=== PATIENT | female | born 1970 | race Caucasian/White ===

== ENCOUNTER → 2017-11-30 08:19 | Outpatient (CLI) | payer BC, SELFPAY ==
--- NOTE | 2017-11-30 08:24 | US_ITS ---
US abdomen limited History:Right upper quadrant pain Ordering Physician:Pavan Flores MD Patient Age: 47 years Comparison:None Findings: Pancreas:Unremarkable. No obvious mass or abnormal fluid collection. No ductal dilatation Liver:No focal liver lesions demonstrated. Homogeneous echogenicity. No intrahepatic biliary ductal dilatation evident Right Kidney:Unremarkable. Normal size and echogenicity. No hydronephrosis Gallbladder:No gallstones, gallbladder wall thickening, pericholecystic fluid, or biliary dilatation. There is a small amount of layering sludge versus concentrated bile questionable clinical significance. Impression: 1. No gallstones, gallbladder wall thickening, pericholecystic fluid, or biliary dilatation 2. Small amount of layering sludge within the gallbladder
== END ==
PROVIDERS: Family Provider Family Medicine; PCP Family Medicine; Visit Provider Family Medicine
DX: R10.11 Right upper quadrant pain (principal)
CPT/HCPCS: 76705

== ENCOUNTER → 2017-12-17 10:09 | Outpatient (CLI) | payer BC, SELFPAY ==
--- NOTE | 2017-12-17 10:15 | NM_ITS ---
NM hepatobiliary wo pharm HISTORY: ITS.REASON: RUQ PAIN , GB SLUDGE ORDERING PHYSICIAN: Pavan Flores MD PATIENT AGE: 47 years COMPARISON: None DOSE: 8.20 [facility] choletec Fatty Meal: Ensure FINDINGS: Homogeneous activity is present within the hepatic parenchyma. Activity is present in the gallbladder by 15 minutes. Activity is present in the small bowel by fatty meal images. The gallbladder ejection fraction is calculated to be 55% The patient did not report pain or other symptoms following the fatty meal. IMPRESSION: Unremarkable hepatobiliary scan and gallbladder ejection fraction. No evidence of common or cystic duct obstruction with normal gallbladder ejection fraction
== END ==
PROVIDERS: Family Provider Family Medicine; PCP Family Medicine; Visit Provider Family Medicine
DX: R10.11 Right upper quadrant pain (principal); K82.8 Other specified diseases of gallbladder
CPT/HCPCS: 78226; A9537

== ENCOUNTER → 2018-04-04 16:20 | Outpatient (CLI) | payer BC, SELFPAY ==
--- NOTE | 2018-04-04 16:25 | MM_ITS ---
MM Dig screening mamm BI w/CAD ORDERING PHYSICIAN : Pavan Flores MD PATIENT AGE: 48 years GENDER: Female COMPARISON: November 2016, 2015, August 2014], July [id number] INDICATION: ITS.REASON: SCREENING patient taking female hormones as per history sheet.No new complaints. Family history. Maternal grandmother with breast cancer TECHNIQUE: Standard CC and MLO images were obtained. R2 CAD reviewed. The study was previously reviewed by Dr. Hdz & locked and unavailable for dictation .. Now presented to Dr. Menard for completion. FINDINGS: Moderately dense heterogeneous breast RIGHT BREAST: . small small focal area of density at the upper outer quadrant of central breast. It measures up to 5.5 mm size. It is labeled a. Warrants additional CC and 90 degree and MLO spot views to further evaluate. Ultrasound suggested as well. May merely reflect summation shadows is a similar area seen back on 2015 MLO view area but does warrant further evaluation. This density Noted on visual inspection but then also was noted to be highlighted by CAD computer review. LEFT BREAST: Stable no new areas of concern IMPRESSION: ...... 1. Right breast. Warrants additional spot views and ultrasound Small focal area of density at the upper-outer quadrant central right breast . May merely be summation shadow but warrants additional spot views and ultrasound BI-RADS Category: 0 Need Additional Imaging Evaluation RECOMMENDED FOLLOW-UP: IMM - IMMEDIATE FOLLOW-UP RECOMMENDED Spot views and ultrasound right breast (A letter has been sent to the patient regarding results of the study.)
== END ==
PROVIDERS: Family Provider Family Medicine; PCP Family Medicine; Visit Provider Family Medicine
DX: Z12.31 Encounter for screening mammogram for malignant neoplasm of breast (principal)
CPT/HCPCS: 77067

== ENCOUNTER → 2018-04-26 13:38 | Outpatient (CLI) | payer BC, SELFPAY ==
--- NOTE | 2018-04-26 13:49 | MM_ITS ---
MM Dig mamm DX unilat RT CAD, US breast RT complete INDICATION: Follow-up abnormal mammogram ORDERING PHYSICIAN: Pavan Flores MD PATIENT AGE: 48 years COMPARISON: 04/04/2018, 12/09/2016 TECHNIQUE: Problem-solving views of the right breast along with right breast ultrasound FINDINGS: Average to dense fibroglandular tissue which decreases sensitivity of mammography. The asymmetric density in the superior right breast in the periareolar region was once again noted on the regular spot compression view but not duplicated on the cc view or the ML view and is less apparent on the focal spot compression views probably related to an area of asymmetric fibroglandular tissue. There is some residual asymmetric density in this area however, no sonographic abnormality is evident to correspond to this region. Left breast ultrasound: No cystic or solid mass is apparent. Specifically, no sonographic abnormality to correspond to the area of asymmetry IMPRESSION: Area of asymmetric density in the superior right breast to asymmetric fibroglandular tissue. No convincing evidence of malignancy BI-RADS Category: 3 Probably Benign Finding Short Term Follow-up RECOMMENDED FOLLOW-UP: 6M - 6 MONTH FOLLOW-UP (A letter has been sent to the patient regarding results of the study.)
== END ==
PROVIDERS: PCP Family Medicine; Visit Provider Family Medicine
DX: R92.8 Other abnormal and inconclusive findings on diagnostic imaging of breast (principal)
CPT/HCPCS: 76641; 77065

== ENCOUNTER → 2018-10-28 12:37 | Outpatient (CLI) | payer BC, SELFPAY ==
--- NOTE | 2018-10-28 12:53 | US_ITS ---
MM Dig mamm DX unilat RT CAD, US breast RT complete INDICATION: Follow-up abnormal mammogram, 6 month follow-up ORDERING PHYSICIAN: Pavan Flores MD PATIENT AGE: 48 years COMPARISON: 04/26/2018, 04/04/2018, 12/09/2016 TECHNIQUE: Standard images performed along with spot compression and rolled views FINDINGS: There is dense fibroglandular tissue. Previously noted asymmetric density in the lateral aspect of the right breast is unchanged. This density is less apparent on the MLO view on today's exam. The asymmetric density superior to the nipple on the MLO view is not significantly changed. Right breast ultrasound: No cystic or solid lesions evident. There is a small area of increased echogenicity consistent with calcification at 10:00 IMPRESSION: No change. No evidence of malignancy. Asymmetric density is once again noted which appear stable BI-RADS Category: 2 Benign Finding(s) RECOMMENDED FOLLOW-UP: 6M - 6 MONTH FOLLOW-UP (A letter has been sent to the patient regarding results of the study.)
== END ==
PROVIDERS: PCP Family Medicine; Visit Provider Family Medicine
DX: R92.8 Other abnormal and inconclusive findings on diagnostic imaging of breast (principal)
CPT/HCPCS: 76641; 77065

== ENCOUNTER → 2019-04-21 13:46 | Outpatient (CLI) | payer BC, SELFPAY ==
--- NOTE | 2019-04-21 13:53 | MM_ITS ---
PROCEDURE: MM DIG MAMM BI DX W/CAD CLINICAL INDICATION: 6 MONTH F/U COMPARISON: [facility] DIG MAMM-SCREEN KISHOR from 12/03/2015 [facility] DIG MAMM-SCREEN K[facility]OR W/CAD from 12/09/2016 [facility] MM Dig screening mamm BI w/CAD from 04/04/2018 DXRT MM Dig mamm DX unilat RT CAD from 04/26/2018 DIG MAMM-DX UNI-RT from 10/28/2018 TECHNIQUE: Standard CC and MLO images were obtained. R2 CAD reviewed. FINDINGS: The scattered areas of asymmetry once again noted in the right breast not significantly changed. No discrete mass or malignant-appearing microcalcification. There is average fibroglandular tissue. Benign appearing calcification noted on the right IMPRESSION: No evidence of malignancy with no significant change BI-RAD Category: 2 Benign Finding(s) FOLLOW-UP: 1YR 1 Year Follow-up (A letter has been sent to the patient regarding results of the study.) Dictated by: Darrell Choudhary MD 04/21/2019 14:44 Electronically signed by Darrell Choudhary MD in [place] 04/21/2019 14:44
== END ==
PROVIDERS: PCP Family Medicine; Visit Provider Family Medicine
DX: R92.8 Other abnormal and inconclusive findings on diagnostic imaging of breast (principal)
CPT/HCPCS: 77066

== ENCOUNTER 2020-01-21 20:51 | Emergency (ER) | payer BC, SELFPAY ==
[2020-01-21 21:11] VITALS: BP 148/88; PULSE 75; RESP 19; TEMP 37.1; O2SAT 97; BMI 25.6
--- NOTE | 2020-01-21 21:17 | HMH.EDUTC ---
[facility] [place] Clinical Impression: COVID-19 virus test result unknown Disposition: Home, Self-Care Condition on Discharge: Good Instructions: Preventing the Spread of Coronavirus Discharge Instructions Referrals: Pavan Flores MD [Primary Care Provider] - Time of Disposition: 21:22 Medical Decision Making - Son Inquiry Pt receiving controlled substance: No Vital Signs: 01/21/20 21:11 Temperature 98.7 F Temperature Source Oral Pulse Rate [Right Brachial] 75 Respiratory Rate 19 Blood Pressure [Right Arm] 148/88 H Blood Pressure Mean [Right Arm] 108 Blood Pressure Source [Right Arm] Automatic Cuff Blood Pressure Position [Right Arm] Sitting 02 Sat by Pulse Oximetry 97 Oxygen Delivery Method Room Air Orders (Tests/Meds): ORDERS Category Date Time Status SARS-CoV-2, [facility] Stat Lab 01/21/20 20:53 Ordered [facility] [place] HPI - General Chief complaint: [facility] Stated complaint: covid test Time Seen by Provider: 01/21/20 21:20 Mode of Arrival: Ambulatory Source of Information: Patient Limitations: No Limitations Description of Symptoms (Recalled from Triage Doc. by RN): PATIENT IS REQUESTING COVID TEST D/T BEING TESTED AND HAVING SYMPTOMS, DENIES ANY SYMPTOMS HEENT Symptoms (Recalled from RN notes): No Resp Symptoms (Recalled from RN notes): No Skin Symptoms (Recalled from RN notes): No MS Symptoms (Recalled from RN notes): No Functional Status (Recalled from RN notes): WNL - History of Present Illness Provider Complaint: 49 yr old female presents for coived testing. pt states no symptoms but her has a fever. - Related Data Allergies Allergy/AdvReac Type Severity Reaction Status Date / Time No Known Allergies Allergy Verified 01/21/20 21:14 - Worker's Comp Is this a Worker's Comp case?: No [facility] History - Hepatitis A Screen Drug use history?: No High risk sexual behaviors?: No History of sexually transmitted infection?: No Currently employed?: No Childcare worker?: No Do you have indoor plumbing?: Yes Do you have electricity?: Yes Attestation statement:: This patient has been screened for Hepatitis A risk factors. I have reviewed the patient's past medical history: Yes Laterality Cases: Bilateral: Tonsillectomy - Social History Alcohol Intake: never Occupational Status: other ROS Obtained: Yes Systems reviewed as appropriate & no additional complaints - Constitutional Constitutional: Reports system reviewed and no additional complaints, except as docu, Denies body ache, Denies fatigue, Denies fever(s) - Eyes Eyes: Reports system reviewed and no additional complaints, except as docu, Denies change in vision - ENT Ears, Nose, Mouth, and Throat: Reports system reviewed and no additional complaints, except as docu, Denies sinus pressure, Denies sore throat - Cardiovascular Cardiovascular: Reports system reviewed and no additional complaints, except as docu, Denies chest pain - Respiratory Respiratory: Yes system reviewed and no additional complaints, except as docu, No chest congestion - Gastrointestinal Gastrointestingal: Reports: system reviewed and no additional complaints, except as docu. Denies: nausea, vomiting - Genitourinary Female Genitourinary: Reports system reviewed and no additional complaints, except as docu, Denies urinary incontinence - Musculoskeletal Musculoskeletal: Reports system reviewed and no additional complaints, except as docu, Denies joint pain - Integumentary/Breasts Skin/Breast: Reports system reviewed and no additional complaints, except as docu, Denies rash - Neurologic Neurologic: Reports system reviewed and no additional complaints, except as docu, Denies tingling/numbness/burning sensations - Endocrine Endocrine: Reports system reviewed and no additional complaints, except as docu, Denies fatigue - Hematologic/Lymphatic Henatologic/Lymphatic: Reports system reviewed and no additional complaints, exc
[2020-01-21 21:42] VITALS: BP 148/88; PULSE 75; RESP 19; TEMP 37.1; O2SAT 97
[2020-01-23 14:19] LABS: Covid-19 Nasal PCR Sendout Lex Not Detected
== END 2020-01-21 21:43 | disposition home or self-care (01) ==
PROVIDERS: Emergency Provider Nurse Practitioner Family; PCP Family Medicine
DX: Z20.828 Contact with and (suspected) exposure to other viral communicable diseases (principal)
CPT/HCPCS: 99201; U0004

== ENCOUNTER → 2020-04-17 16:48 | Outpatient (CLI) | payer BC, SELFPAY ==
--- NOTE | 2020-04-17 16:50 | MM_ITS ---
PROCEDURE: MM DIG SCREENING MAMM BI W/CAD Digital Breast Tomosynthesis Included CLINICAL INDICATION: SCREENING There is a history of breast cancer in the patient's maternal grandmother. COMPARISON: MG [facility] MM Dig screening mamm BI w/CAD from 04/04/2018 MG DXRT MM Dig mamm DX unilat RT CAD from 04/26/2018 MG DIG MAMM-DX UNI-RT from 10/28/2018 MG MM DIG MAMM BI DX W/CAD from 04/21/2019 TECHNIQUE: Standard CC and MLO images and 3D Tomosynthesis was obtained. R2 CAD reviewed. FINDINGS: Scattered fibroglandular densities are seen throughout both breasts. Again noted are asymmetric glandular elements right breast unchanged from previous exams. There is a benign-appearing calcification right breast and new benign-appearing calcifications just deep to the nipple left breast. There is no suspicious lesion and no suspicious microcalcifications. IMPRESSION: Moderate breast density with no suspicious lesions seen BI-RAD Category: 2 Benign Finding(s) FOLLOW-UP: 1YR 1 Year Follow-up (A letter has been sent to the patient regarding results of the study.) Dictated by: Dr. Germán Hdz MD 04/19/2020 08:47 Dr. Germán Hdz MD in [place] 04/19/2020 08:47
== END ==
PROVIDERS: PCP Family Medicine; Visit Provider Family Medicine
DX: Z12.31 Encounter for screening mammogram for malignant neoplasm of breast (principal)
CPT/HCPCS: 77063; 77067

== ENCOUNTER → 2020-11-27 10:13 | Outpatient (CLI) | payer BC, SELFPAY | PROVIDERS: Visit Provider Internal Medicine Gastroenterology | DX: Z01.812 Encounter for preprocedural laboratory examination (principal); Z11.52 Encounter for screening for COVID-19; Z12.11 Encounter for screening for malignant neoplasm of colon | CPT/HCPCS: U0003 ==

== ENCOUNTER 2020-11-29 07:01 | Day surgery (SDC) | payer BC, SELFPAY ==
[2020-11-21 08:19] VITALS: BMI 25.4
[2020-11-29 07:16] VITALS: BP 133/72; PULSE 55; RESP 18; TEMP 36.6; O2SAT 99
--- NOTE | 2020-11-29 07:41 | P.PN_ITS ---
[facility] Anesthesia Checklist - Structural Data Admitted From: Home Planned Operative Procedure/s: colonoscopy Consent for Planned Operative Procedure(s) Verified: Yes - Airway Assessment C-Spine Mobility Assessed: Yes TMJ Mobility Assessed: Yes Dentition: Good Dentition - Neurological Assessment Level of Consciousness: Awake, Alert, Appropriate - Anesthesia Plan Anesthesia Risk discussed: Yes Anesthesia Plan: Verified ASA Class: II Anesthesia Type: MAC [facility] History I have reviewed the patient's past medical history: Yes Medical History: Denies:: Cancer, Diabetes Mellitus Type 1, Diabetes Mellitus Type 2, Internal Pacemaker, MRSA, Seizures *Have you ever received a pneumonia vaccine?: No *Have you received a flu vaccine this season?: Yes Anesthesia experience/problems:: none Laterality Cases: Bilateral: Tonsillectomy Other Surgeries: No: Pacemaker Amputation: No Fractures: No - *Social History Last grade of school completed: Advanced degree Smoking Status: Never smoker Alcohol Intake: current Alcohol Intake Frequency:: a few times a month Substance Use Type: denies use *Occupational Status:: retired Housing: house Household Members: spouse *Travel in the last 8 weeks: None Family Hx:: No significant family history, Asthma
[2020-11-29 08:04] VITALS: O2SAT 97
--- NOTE | 2020-11-29 08:08 | HMH.PROC ---
[facility] Procedure Note Procedure Note:: Colonoscopy Procedure Report: Colonoscopy Endoscopist: You Chu II, MD Referring physician: Pavan Flores MD Date of Procedure: November 29, 2020 Equipment: Olympus 190 variable stiffness pediatric colonoscope Sedation: MAC sedation Indication: Mrs. Chan is a 50-year-old female who is here for initial screening colonoscopy. She reports no abdominal pain, weight loss, change in her bowel habits or rectal bleeding. She reports no family history of colon cancer. She does have some chronic constipation. She did have a hysterectomy at age 32. Procedure: Prior to the procedure, a history and physical exam was performed, and patient's medications and allergies were reviewed. The risks, benefits and alternatives of the sedation and procedure were discussed with the patient. All questions were answered and informed consent was obtained. The patient was brought to the procedure room. Patient identification and proposed procedure were verified by the physician and the nurse. The patient was placed in a left lateral decubitus position and the scope was passed under direct vision. Throughout the procedure, the patient's blood pressure, pulse, and oxygen saturations were monitored continuously. The colonoscopy was accomplished without difficulty. The patient tolerated the procedure well. Findings: On digital rectal examination there was normal rectal tone. There were no external hemorrhoids. The colonoscope was introduced through the anal canal to the rectum and advanced to the cecum. The ileocecal valve and appendiceal orifice were identified. The scope was advanced a short distance into the ileum which appeared grossly normal. The scope was then withdrawn into the colon. The cecum, ascending, transverse, descending, sigmoid and rectum were grossly normal. There was some very mild melanosis coli. There were no other mucosal abnormalities identified. Upon retroflexion within the rectum there were grade 1 internal hemorrhoids.The preparation was excellent throughout with [place] Preparation Score of 9. The cecal time was 11 minutes. Impression: 1. Normal colonoscopy with intubation of the terminal ileum Plan: The patient will not require screening/surveillance colonoscopy again for 10 years by ACS guidelines. I would encourage using a fiber bowel regimen on a long-term daily maintenance basis.
[2020-11-29 08:25] VITALS: BP 127/70; PULSE 64; RESP 16; TEMP 36.6; O2SAT 100
[2020-11-29 08:35] VITALS: BP 120/80; PULSE 61; RESP 18; O2SAT 100
[2020-11-29 08:45] VITALS: BP 142/64; PULSE 68; RESP 18; O2SAT 100
[2020-11-29 08:55] VITALS: BP 133/62; PULSE 59; RESP 18; O2SAT 100
== END 2020-11-29 08:55 | disposition home or self-care (01) ==
PROVIDERS: PCP Family Medicine; Visit Provider Internal Medicine Gastroenterology
PROC: 0DJD8ZZ Inspection of Lower Intestinal Tract, Via Natural or Artificial Opening Endoscopic (ICD-10-PCS; CPT 45378; principal; 2020-11-29 08:00)
DX: Z12.11 Encounter for screening for malignant neoplasm of colon (principal); K64.0 First degree hemorrhoids; K63.89 Other specified diseases of intestine; Z82.5 Family history of asthma and other chronic lower respiratory diseases; Z79.899 Other long term (current) drug therapy
CPT/HCPCS: 45378

== ENCOUNTER → 2020-12-10 07:57 | Outpatient (POV) | payer BC, SELFPAY | PROVIDERS: Visit Provider Dermatology | DX: Z00.00 Encounter for general adult medical examination without abnormal findings (principal) ==

== ENCOUNTER → 2021-04-28 07:48 | Outpatient (CLI) | payer BC, SELFPAY ==
--- NOTE | 2021-04-28 07:59 | MM_ITS ---
PROCEDURE INFORMATION: Exam: MG Bilateral Screening 3D Mammography Exam date and time: 04/28/2021 7:59 AM Age: 51 years old Clinical indication: Encounter for screening mammogram for malignant neoplasm of breast TECHNIQUE: Imaging protocol: Bilateral screening tomosynthesis and 2D mammography including computer-aided detection (CAD) when performed. COMPARISON: 1. MG MM DIG SCREENING MAMM BI W/CAD 04/17/2020 4:52 PM 2. MG MM DIG MAMM BI DX W/CAD 04/21/2019 2:07 PM FINDINGS: MAMMOGRAPHY: Breast composition: The breast tissue is heterogeneously dense, which may obscure small masses. Mass: None. Architectural distortion: None. Calcifications: No suspicious calcifications. Asymmetric density: None. Skin thickening: None. Axillary adenopathy: None. IMPRESSION: No mammographic evidence of malignancy. Annual screening is recommended unless otherwise clinically indicated. ASSESSMENT: BI-RADS Category 1: Negative
== END ==
PROVIDERS: PCP Family Medicine; Visit Provider Family Medicine
DX: Z12.31 Encounter for screening mammogram for malignant neoplasm of breast (principal)
CPT/HCPCS: 77063; 77067

== ENCOUNTER → 2022-02-03 15:51 | Outpatient (POV) | payer BC, SELFPAY | PROVIDERS: Visit Provider Dermatology | DX: Z00.00 Encounter for general adult medical examination without abnormal findings (principal) ==

== ENCOUNTER 2022-04-26 08:06 | Emergency (ER) | payer BC, SELFPAY ==
[2022-04-26 08:28] VITALS: BP 147/72; PULSE 80; RESP 16; TEMP 37; O2SAT 100; BMI 24.7
--- NOTE | 2022-04-26 08:37 | EXP.UTC ---
Discharge Plan Disposition Patient Disposition: Home, Self-Care Condition: Good Prescriptions Prescriptions: New amoxicillin [amoxicillin] 500 mg tablet 500 mg PO TID 10 Days Qty: 30 0RF benzonatate [benzonatate] 100 mg capsule 100 mg PO TIDP PRN (Reason: Cough) Qty: 30 0RF oseltamivir [Tamiflu] 75 mg capsule 75 mg PO BID Qty: 10 0RF methylprednisolone 4 mg Tablets,Dose Pack 4 mg PO DIRECTED Qty: 21 0RF No Action estradiol [Estrace] 0.01 % (0.1 mg/gram) cream 0.5 g VAGINAL .three times weekly 30 Days Qty: 42.5 2RF fluticasone propionate 120 SPR/BOT bottle 2 spr NS DAILY loratadine 10 MG tablet 10 mg PO DAILY Referrals Follow up/Referrals: Pavan Flores MD [Primary Care Provider] - See instructions Activity Restrictions/Add. Instructions Additional Instructions/Restrictions: Drink plenty of fluids. Take tylenol or ibuprofen for pain or fever. Take the medications as directed. Follow up with your regular doctor. GO TO THE ER FOR ANY WORSENING SYMPTOMS Clinical Impressions Clinical Impression: Influenza A, Strep throat Stand Alone Forms Stand Alone Forms: Work/School Release Instructions Patient Instructions: Strep Throat, DI for Strep Throat, DI for Influenza -- Adult, Oseltamivir Discharge ED Provider: David Gracia [facility] General Stated complaint: sore throat,congestion Mode of Arrival: Ambulatory Source of Information: Patient Limitations: No Limitations Time Seen by Provider: 04/26/22 08:36 Description of Symptoms (Recalled from Triage Doc. by RN): pt comes in with c/o sore throat, fatigue, body aches. symptoms began last night. HEENT Symptoms (Recalled from RN notes): Yes Resp Symptoms (Recalled from RN notes): No Skin Symptoms (Recalled from RN notes): No MS Symptoms (Recalled from RN notes): No Functional Status (Recalled from RN notes): n/a History of Present Illness Provider Complaint: She states that for the past 1 day she has had body ache, chills, low grade fever, and chest congestion. Related Data Home Medications Medication Instructions Recorded Confirmed fluticasone propionate 50 2 spr intranasal DAILY Allergy 11/21/20 10/31/21 mcg/actuation nasal symptoms spray,suspension loratadine 10 mg tablet 10 mg PO DAILY Allergy symptoms 11/21/20 10/31/21 Previous Rx's Medication Instructions Recorded estradiol 0.01% (0.1 mg/gram) 0.5 g vaginal .three times weekly 02/25/21 vaginal cream (Estrace) 30 days #42.5 grams amoxicillin 500 mg tablet 500 mg PO TID 10 days #30 tabs 04/26/22 benzonatate 100 mg capsule 100 mg PO TIDP PRN Cough #30 caps 04/26/22 methylprednisolone 4 mg tablets in 4 mg PO DIRECTED #21 tabs 04/26/22 a dose pack oseltamivir 75 mg capsule (Tamiflu) 75 mg PO BID #10 caps 04/26/22 Allergies Allergy/AdvReac Type Severity Reaction Status Date / Time No Known Allergies Allergy Verified 04/26/22 08:30 Worker's Comp Is this a Worker's Comp case?: No PFSH PFSH Social History Smoking Status: Former smoker alcohol intake: current substance use type: denies use current occupational status: retired Travel in the last 8 weeks: None household members: spouse housing: house current occupational exposures/hazards: No caffeine: Yes ROS Obtained: Yes All systems reviewed & no additional complaints except as documented Constitutional Constitutional: Reports chills and Reports fever(s) Eyes Eyes: Denies eye discharge ENT Ears, Nose, Mouth, and Throat: Reports as per HPI Cardiovascular Cardiovascular: Denies chest pain Respiratory Respiratory: Denies chest congestion and Reports cough Gastrointestinal Gastrointestingal: Reports nausea; Denies abdominal pain, constipation, cramping, diarrhea or vomiting Musculoskeletal Musculoskeletal: Denies arthralgias Integumentary/Breasts Skin/Breast: Denies rash Neurologic Neurologic:
[2022-04-26 08:41] LABS: UTC Strep Screen (Rapid) Negative (Negative)
[2022-04-26 08:42] LABS: UTC Influenza A Antigen Negative (Negative); UTC Influenza B Antigen Negative (Negative)
[2022-04-26 09:04] VITALS: BP 147/72; PULSE 80; RESP 16; TEMP 37
== END 2022-04-26 09:12 | disposition home or self-care (01) ==
PROVIDERS: Emergency Provider Nurse Practitioner Family; PCP Family Medicine
DX: J02.9 Acute pharyngitis, unspecified (principal); R53.82 Chronic fatigue, unspecified; R50.9 Fever, unspecified; R05.9 Cough, unspecified; M79.10 Myalgia, unspecified site; Z79.51 Long term (current) use of inhaled steroids; Z79.52 Long term (current) use of systemic steroids; Z79.899 Other long term (current) drug therapy; Z79.890 Hormone replacement therapy; Z87.891 Personal history of nicotine dependence
CPT/HCPCS: 87804; 87880; 99213; G0463

== ENCOUNTER → 2022-06-22 08:16 | Outpatient (CLI) | payer BC, SELFPAY ==
--- NOTE | 2022-06-22 08:20 | MM_ITS ---
PROCEDURE INFORMATION: Exam: MG Bilateral Screening 3D Mammography Exam date and time: 06/22/2022 8:11 AM Age: 52 years old Clinical indication: Screening examination. Her maternal grandmother had breast cancer. TECHNIQUE: Imaging protocol: Bilateral Screening tomosynthesis and 2D mammography including computer-aided detection (CAD) when performed. COMPARISON: 1. MG MM DIG SCREENING MAMM BI W/CAD 04/28/2021 7:55 AM 2. MG MM DIG SCREENING MAMM BI W/CAD 04/17/2020 4:52 PM 3. MG MM DIG MAMM BI DX W/CAD 04/21/2019 2:07 PM 4. MG DIG MAMM-DX UNI-RT 10/28/2018 1:15 PM FINDINGS: MAMMOGRAPHY: Breast composition: The breasts are heterogeneously dense, which may obscure small masses. Mass: No suspicious mass. Architectural distortion: None. Calcifications: No suspicious calcifications. Asymmetric density: None. Skin thickening: None. Axillary adenopathy: None. IMPRESSION: No mammographic evidence of malignancy. Annual screening is recommended unless otherwise clinically indicated. ASSESSMENT: BI-RADS Category 1: Negative
== END ==
PROVIDERS: PCP Family Medicine; Visit Provider Family Medicine
DX: Z12.31 Encounter for screening mammogram for malignant neoplasm of breast (principal)
CPT/HCPCS: 77063; 77067

== ENCOUNTER → 2023-02-23 14:22 | Outpatient (POV) | payer BC, SELFPAY | PROVIDERS: Visit Provider Dermatology | DX: Z00.00 Encounter for general adult medical examination without abnormal findings (principal) ==

== ENCOUNTER 2024-10-03 13:16 | Outpatient (CLI) | payer BC, SELFPAY ==
--- NOTE | 2024-10-03 13:23 | XR_ITS ---
FINAL REPORT CLINICAL HISTORY: Right knee pain..no trauma FINDINGS: AP, lateral and oblique views of the right knee were obtained. There is no prior exam for comparison. There is no acute osseous abnormality of the right knee. The joint space is preserved. The soft tissues are normal. There is no joint effusion. IMPRESSION: No acute osseous abnormality of the right knee. Reviewed, Interpreted and Dictated by Debby Bullock MD Transcribed by Irina Buenrostro Authenticated and [facility]
== END 2024-10-03 23:59 | disposition home or self-care (01) ==
LOC: RAD 13:16
PROVIDERS: PCP Family Medicine; Visit Provider Physician Assistant
DX: M25.561 Pain in right knee (principal)
CPT/HCPCS: 73562